=== PATIENT | female | born 1980 | race Hispanic/Latino ===

== ENCOUNTER → 2022-08-28 | Outpatient (CLI) | payer MEDICAID | END | disposition home or self-care (01) | LOC: RAH 07:53 | PROVIDERS: ATTEND Obstetrics & Gynecology | DX: Z12.31 Encounter for screening mammogram for malignant neoplasm of breast (principal) | CPT/HCPCS: 77067 ==

== ENCOUNTER 2023-10-25 20:49 | Inpatient (IN) | payer MEDICAID, OTHER ==
[~2023-10-25] VITALS: Ht 160 cm; Wt 81.7 kg
[2023-10-25] MEDS: ONDANSETRON ODT 4MG TAB SL ONE (21:00)
[2023-10-25 21:13] LABS: BASOPHILS # (AUTO) 0.06 K/uL (0.00-0.20); BASOPHILS % (AUTO) 0.5 % (0.0-5.0); EOSINOPHILS # (AUTO) 0.02 K/uL (0.00-0.70); EOSINOPHILS % (AUTO) 0.2 % (0.0-8.0); HEMATOCRIT 44.1 % (36-48); IMMATURE GRANULOCYTE ABSOLUTE 0.04 K/uL (0-1); LYMPHOCYTES # (AUTO) 2.6 K/uL (1.0-4.8); LYMPHOCYTES % (AUTO) 20.3 % (21.0-51.0); MEAN CORPUSCULAR HEMOGLOBIN 24.6 pg (27.0-33.0); MEAN CORPUSCULAR HGB CONC 31.1 g/dL (32.0-36.0); MEAN CORPUSCULAR VOLUME 79.3 fL (79-99); MONOCYTES # (AUTO) 0.8 K/uL (0.1-1.0); MONOCYTES % (AUTO) 5.8 % (3.0-13.0); NEUTROPHILS # (AUTO) 9.5 K/uL (1.8-7.7); NEUTROPHILS % (AUTO) 72.9 % (40.0-77.0); PLATELET COUNT (AUTO) 385 K/uL (130-400); RED BLOOD CELL COUNT(AUTO) 5.56 MIL/uL (4.00-5.50); RED CELL DISTRIBUTION WIDTH 15.7 % (11.0-15.5)
[2023-10-25 21:26] LABS: SARS-CoV-2, RNA, NAAT NEGATIVE SARS CoV-2 (NEGATIVE)
[2023-10-25 21:32] LABS: INFLUENZA TYPE A Negative For Type A (NEGATIVE); INFLUENZA TYPE B Negative For Type B (NEGATIVE)
[2023-10-25 21:33] LABS: CREATININE 0.9 mg/dL (0.5-1.0); POTASSIUM 3.3 mmol/L (3.5-5.1)
[2023-10-25] MEDS: 0.9%NACL 1000ML 1,000 ML IV ONE (23:14)
[2023-10-25 23:17] LABS: ADD UA MICROSCOPIC YES; APPEARANCE,URINE CLOUDY (CLEAR); BILIRUBIN,URINE NEGATIVE (NEGATIVE); COLOR,URINE YELLOW (YELLOW); GLUCOSE, URINE (UA) >=1000 mg/dL (NEGATIVE); KETONES,URINE 150 mg/dL (NEGATIVE); LEUKOCYTE ESTERASE ,URINE 500 Leu/uL (NEGATIVE); NITRATE,URINE NEGATIVE (NEGATIVE); OCCULT BLOOD,URINE SMALL (NEGATIVE); PROTEIN,URINE 200 mg/dL (NEGATIVE)
[2023-10-25 23:18] LABS: BACTERIA,URINE MOD /HPF (None Seen); MUCUS,URINE FEW LPF (None Seen); SQUAMOUS EPITHELIAL CELL,UR MANY /HPF (0-2); WBC,URINE TNTC /HPF (0-1)
[2023-10-25 23:46] LABS: BILIRUBIN,DIRECT 0.2 mg/dL (0.0-0.3); BILIRUBIN,TOTAL 0.9 mg/dL (0.2-1.0); TOTAL PROTEIN, SERUM 9.4 g/dL (6.0-8.3)
[2023-10-26] MEDS: cefTRIAXone 1G VIAL IVPB ONE (00:25)
[2023-10-26] MEDS: metoCLOPRAmide 10 MG/2 ML VIAL IVP ONE (00:43)
[2023-10-26] MEDS ORDERED: GLUCAGON 1MG KIT 1 MG ML IM PRN (04:30)
[2023-10-26] MEDS ORDERED: DEXTROSE 50%-WATER 50 ML DISP.SYRIN IV PRN (04:30)
[2023-10-26] MEDS: 0.9%NACL 1000ML 1,000 ML IV SCH (04:58)
[2023-10-26] MEDS: INSULIN humuLIN R 100 UNIT/ML 3ML SQ SCH (07:30)
[2023-10-26 08:02] LABS: BASOPHILS # (AUTO) 0.06 K/uL (0.00-0.20); BASOPHILS % (AUTO) 0.6 % (0.0-5.0); EOSINOPHILS # (AUTO) 0.04 K/uL (0.00-0.70); EOSINOPHILS % (AUTO) 0.4 % (0.0-8.0); HEMATOCRIT 42.4 % (36-48); IMMATURE GRANULOCYTE ABSOLUTE 0.04 K/uL (0-1); LYMPHOCYTES # (AUTO) 2.1 K/uL (1.0-4.8); LYMPHOCYTES % (AUTO) 19.7 % (21.0-51.0); MEAN CORPUSCULAR HEMOGLOBIN 25.5 pg (27.0-33.0); MEAN CORPUSCULAR HGB CONC 31.4 g/dL (32.0-36.0); MEAN CORPUSCULAR VOLUME 81.2 fL (79-99); MONOCYTES # (AUTO) 0.7 K/uL (0.1-1.0); MONOCYTES % (AUTO) 6.8 % (3.0-13.0); NEUTROPHILS # (AUTO) 7.8 K/uL (1.8-7.7); NEUTROPHILS % (AUTO) 72.1 % (40.0-77.0); PLATELET COUNT (AUTO) 322 K/uL (130-400); RED BLOOD CELL COUNT(AUTO) 5.22 MIL/uL (4.00-5.50); RED CELL DISTRIBUTION WIDTH 15.6 % (11.0-15.5); WHITE BLOOD COUNT (AUTO) 10.8 K/uL (4.8-10.8)
[2023-10-26] MEDS: cefTRIAXone 1G VIAL IVPB SCH (08:50)
[2023-10-26] MEDS: FAMOTIDINE 20MG VIAL IV SCH (08:50)
[2023-10-26] MEDS: POTASSIUM CHLORIDE 20MEQ/100ML 100 ML IV PRN (08:50)
[2023-10-26] MEDS: ONDANSETRON 4MG INJ IV PRN (08:50)
[2023-10-26] MEDS ORDERED: cefTRIAXone 1G VIAL 1 GM in 0.9%NACL 50ML 50 ML IV SCH (09:00)
[2023-10-26 09:02] LABS: ALBUMIN 3.4 g/dL (3.5-5.0); BILIRUBIN,TOTAL 0.7 mg/dL (0.2-1.0); CREATININE 0.8 mg/dL (0.5-1.0); MAGNESIUM 1.9 mg/dL (1.80-2.40); POTASSIUM 3.3 mmol/L (3.5-5.1); THYROID STIMULATING HORMONE 1.07 uIU/mL (0.36-3.74); TOTAL PROTEIN, SERUM 8.3 g/dL (6.0-8.3)
[2023-10-26 12:06] VITALS: BP 116/81; PULSE 67; RESP 18; TEMP 97.8
[2023-10-26] MEDS ORDERED: LISI2.5T13 PO (12:27)
[2023-10-26] MEDS ORDERED: ATOR40TA69 PO (12:33)
[2023-10-26] MEDS ORDERED: EMPA10TA PO (12:33)
[2023-10-26] MEDS ORDERED: SEMA2PEN SQ (12:33)
[2023-10-26] MEDS ORDERED: TRAZ-185 PO (12:33)
[2023-10-26 14:21] LABS: AMPHET/METH SCREEN,URINE POSITIVE (NEGATIVE); BARBITURATE SCREEN, URINE NEGATIVE (NEGATIVE); BENZODIAZEPINES SCREEN,URINE NEGATIVE (NEGATIVE); CANNABINOID SCREEN,URINE POSITIVE (NEGATIVE); COCAINE SCREEN,URINE NEGATIVE (NEGATIVE); OPIATE SCREEN,URINE NEGATIVE (NEGATIVE); PHENCYCLIDINE SCREEN,URINE NEGATIVE (NEGATIVE)
[2023-10-26] MEDS ORDERED: POTASSIUM CHLORIDE 20MEQ/100ML 100 ML IV PRN (15:30)
[2023-10-26] MEDS ORDERED: POTASSIUM CHLORIDE 10% ELIXIR 20 MEQ/15 ML UDCUP PO PRN (15:30)
[2023-10-26 15:38] VITALS: BP 113/73; PULSE 65; RESP 18; TEMP 98.1
[2023-10-26] MEDS: MAGNESIUM 2GM PREMIX 50ML 50 ML IV PRN (17:43)
[2023-10-26 19:00] VITALS: BP 96/62; PULSE 64; RESP 14; TEMP 97.8
[2023-10-26 20:14] VITALS: O2SAT 97
[2023-10-26] MEDS: atorVAStatin 40 MG TABLET PO SCH (20:14)
[2023-10-26] MEDS: KCL 20 MEQ ERTAB PO PRN (20:29)
[2023-10-26] MEDS: ketOROlac 15MG/ML VIAL (15MG/ML) IM PRN (20:29)
[2023-10-26 23:00] VITALS: BP 105/63; PULSE 81; RESP 16; TEMP 98.6
[2023-10-27 03:00] VITALS: BP 114/70; PULSE 66; RESP 16; TEMP 98.5
[2023-10-27 05:22] LABS: BASOPHILS # (AUTO) 0.04 K/uL (0.00-0.20); BASOPHILS % (AUTO) 0.5 % (0.0-5.0); EOSINOPHILS # (AUTO) 0.13 K/uL (0.00-0.70); EOSINOPHILS % (AUTO) 1.7 % (0.0-8.0); HEMATOCRIT 37.3 % (36-48); IMMATURE GRANULOCYTE ABSOLUTE 0.02 K/uL (0-1); LYMPHOCYTES # (AUTO) 2.8 K/uL (1.0-4.8); LYMPHOCYTES % (AUTO) 36.6 % (21.0-51.0); MEAN CORPUSCULAR HEMOGLOBIN 24.9 pg (27.0-33.0); MEAN CORPUSCULAR HGB CONC 30.3 g/dL (32.0-36.0); MEAN CORPUSCULAR VOLUME 82.2 fL (79-99); MONOCYTES # (AUTO) 0.6 K/uL (0.1-1.0); MONOCYTES % (AUTO) 8.2 % (3.0-13.0); NEUTROPHILS # (AUTO) 4.1 K/uL (1.8-7.7); NEUTROPHILS % (AUTO) 52.7 % (40.0-77.0); PLATELET COUNT (AUTO) 278 K/uL (130-400); RED BLOOD CELL COUNT(AUTO) 4.54 MIL/uL (4.00-5.50); RED CELL DISTRIBUTION WIDTH 15.6 % (11.0-15.5); WHITE BLOOD COUNT (AUTO) 7.8 K/uL (4.8-10.8)
[2023-10-27 05:55] LABS: ALBUMIN 2.7 g/dL (3.5-5.0); BILIRUBIN,TOTAL 0.4 mg/dL (0.2-1.0); CREATININE 0.8 mg/dL (0.5-1.0); POTASSIUM 3.8 mmol/L (3.5-5.1); TOTAL PROTEIN, SERUM 6.9 g/dL (6.0-8.3)
[2023-10-27 08:00] VITALS: BP 103/72; PULSE 73; RESP 16; TEMP 98.1; O2SAT 97
[2023-10-27] MEDS: LISINOPRIL 2.5 MG TABLET PO SCH (08:54)
[2023-10-27 12:00] VITALS: BP 104/71; PULSE 77; RESP 16; TEMP 98.5
[2023-10-27 16:00] VITALS: BP 99/71; PULSE 63; RESP 16; TEMP 98.7
== END 2023-10-27 19:20 | disposition left against medical advice (07) | DRG 463 ==
LOC: EDH 20:49 → OBSVTOIN 20:50 → INTOOBSV 20:50 → EDHIP 20:50 → 3CH 10-26 10:46
PROVIDERS: ADMIT Hospitalist; ATTEND Hospitalist
DX: N39.0 Urinary tract infection, site not specified (principal); E11.9 Type 2 diabetes mellitus without complications; E78.5 Hyperlipidemia, unspecified; I10 Essential (primary) hypertension; E83.52 Hypercalcemia; E86.0 Dehydration; N28.1 Cyst of kidney, acquired; Z90.710 Acquired absence of both cervix and uterus; Z90.49 Acquired absence of other specified parts of digestive tract; Z79.899 Other long term (current) drug therapy
CPT/HCPCS: 36415; 74176; 80048; 80053; 80076; 80305; 81001; 82330; 82948; 83690; 83735; 83970; 84443; 84484; 85025; 87086; 87186; 87635; 87804; 93005; 96365; 96375; G0378; J0696; J1885; J2405; J2765; J3475; J3480; J3490; J7030

== ENCOUNTER 2024-01-05 17:12 | Emergency (ER) | payer MEDICAID ==
[~2024-01-05] VITALS: Ht 160 cm; Wt 81.6 kg
[~2024-01-05 17:12] MED LIST: ATOR40TA69 PO; EMPA10TA PO; LISI2.5T13 PO; SEMA2PEN SQ; TRAZ-185 PO
--- NOTE | 2024-01-05 17:18 | NUR ---
PT JUST NOW BEING PLACED IN MY ED BED 20
--- NOTE | 2024-01-05 17:25 | ERN ---
ED Note History of Present Illness Stated Complaint: NECK PAIN Chief Complaint: Neck Injury Time Seen by MD: 17:15 Dictation: PATIENT IS A 43-YEAR-OLD FEMALE COMING IN TODAY WITH COMPLAINTS OF LEFT POSTEROLATERAL NECK PAIN THAT RADIATES DOWN TO THE SHOULDER WITHOUT MIDLINE SPINE PAIN ONSET WAS YESTERDAY. SHE STATES SHE HAD GONE TO BED THE NIGHT BEFORE WITHOUT ANY PAIN, WOKE UP WITH PAIN TO THE LEFT POSTERIOR LATERAL NECK. NO HISTORY OF NECK SURGERIES OTHER THAN A LYMPHADENOPATHY BIOPSY 20 YEARS AGO. NO FEVER NO CHILLS Allergies: Coded Allergies: No Known Allergies (Unverified Allergy, Unknown, 10/25/23) Home Meds Active Scripts Ibuprofen (Ibuprofen 800 mg Tab) 800 Mg Tab, 800 MG PO Q8H PRN for fever or pain, #30 TAB 0 Refills Prov:RACHELL HE NP 01/05/24 Cyclobenzaprine HCl (Cyclobenzaprine HCl) 10 Mg Tablet, 1 TAB PO TID for muscle spasms for 10 Days, #30 TAB 0 Refills Prov:RACHELL HE NP 01/05/24 Reported Medications Trazodone HCl (Trazodone HCl) 50 Mg Tablet, 50 MG PO HS PRN for INSOMNIA/SLEEP, TAB 10/26/23 Semaglutide (Ozempic) 2 Mg/0.75 Ml (8 Mg/3 Ml) Pen.injctr, 2 MG SQ QWEEK 10/26/23 Atorvastatin Calcium (LIPITOR) 40 Mg Tablet, 40 MG PO HS, TAB 10/26/23 Empagliflozin (Jardiance) 10 Mg Tablet, 10 MG PO AM, TAB 10/26/23 Lisinopril (Lisinopril) 2.5 Mg Tablet, 2.5 MG PO AM, TAB 10/26/23 Past Medical History Past Medical History: Diabetes-Type II Surgical History: Hysterectomy, Cholecystectomy PSYCH History: no pertinent psych hx History: Not Applicable RN Note Reviewed/Agreed w/PFSH: Yes Review of System Dictation CONSTITUTIONAL: NEGATIVE EXCEPT FOR HPI HEAD/FACE: NEGATIVE EXCEPT FOR HPI EENT: NEGATIVE EXCEPT FOR HPI RESPIRATORY: NEGATIVE EXCEPT FOR HPI GASTROINTESTINAL/ABDOMINAL: NEGATIVE EXCEPT FOR HPI GENITOURINARY: NEGATIVE EXCEPT FOR HPI MUSCULOSKELETAL: NEGATIVE EXCEPT FOR HPI LEFT LATERAL POSTERIOR NECK PAIN INTEGUMENTARY: NEGATIVE EXCEPT FOR HPI NEUROLOGICAL/PSYCH: NEGATIVE EXCEPT FOR HPI HEMATOLOGIC/LYMPHATIC: NEGATIVE EXCEPT FOR HPI ALL SYSTEMS NEGATIVE, EXCEPT NOTED ABOVE. 13 POINT REVIEW OF SYSTEMS ASSESSED AND ALL NEGATIVE EXCEPT FOR ABOVE. Initial Vital Sign VS Vital Signs Date Time Temp Pulse Resp B/P (MAP) Pulse Ox O2 Delivery O2 Flow Rate FiO2 01/05/24 17:14 98.6 74 18 139/93 98 01/05/24 18:50 Room Air* 0 21 Physical Exam Dictation VITAL SIGNS REVIEWED GENERAL APPEARANCE: ALERT, ORIENTED X 3, MODERATE ACUTE DISTRESS, WELL DEVELOPED, NOURISHED. HEAD AND FACE: NON-TRAUMATIC. EYES: PERRL, PINK CONJUNCTIVAS, EYELID NO TRAUMA, ANTERIOR CHAMBER WITH ARCUS SENILIS. EARS: PINNAS INTACT AND NO SIGNS OF TRAUMA OR ERYTHEMA EAR CANALS CLEAR AND NO DISCHARGE TM NO ERYTHEMA NOSE: NO DISCHARGE, NO BLEEDING. OROPHARYNX: MOUTH NORMAL, TONGUE PINK, PHARYNX CLEAR,NO ERYTHEMA, TONSILS NO EXUDATES, NO ABSCESSES NOTED, MUCOUS MEMBRANE MOIST NECK: POSITIVE LEFT POSTERIOR LATERAL PARASPINOUS SPASM, NO THYROMEGALY, NO MASSES, NO JVD, NO BRUITS NO MIDLINE SPINE PAIN BREAST:DEFERRED CHEST:NO TENDERNESS, NO CREPITUS, NO PARADOXICAL MOVEMENT, NO RETRACTIONS LUNGS:CLEAR, WELL-VENTILATED, SYMMETRIC, NO RALES, NO WHEEZING, NO RHONCHI, NO STRIDOR, GOOD BREATH SOUNDS BILATERALLY HEART: REGULAR RATE, REGULAR RHYTHM, NO MURMUR, NO GALLOPS VASCULAR: NO PERIPHERAL EDEMA, ABDOMEN: SOFT, POSITIVE BOWEL SOUNDS, NONDISTENDED, NO GUARDING, NONTENDER, NO REBOUND, NO MASSES NO HEPATOMEGALY, NO SPLENOMEGALY, NO MESA'S SIGN, NO HERNIAS. RECTAL: DEFERRED GENITAL: DEFERRED NEUROLOGICAL: NORMAL SPEECH, MOTOR FUNCTION INTACT, SENSORY FUNCTION INTACT MUSCULOSKELETAL: NECK NONTENDER, FULL RANGE OF MOTION, BACK NONTENDER, FULL RANGE OF MOTION, EXTREMITIES: NONTENDER, FULL RANGE OF MOTION SKIN: COLOR PINK, DRY, NO TURGOR, NO RASH, NO LACERATIONS, NO ABRASIONS, NO CONTUSIONS. LYMPHATIC: DEFERRED Results (Laboratory/Radiology) Laboratory/Radiology CERV SPINE 2-3VWS: 01/05/2024 5:22 PM CHAIN BUILDER CLINICAL HISTORY: NON TRAUMA LEFT POSTERIOR NECK PAIN LATERAL, NO MIDLINE SPINE COMPARISON: None TECHNIQUE: images of the cervical spine were obtained. FINDINGS: The lung apices are clear. There is no fracture or destructive lesion. The vertebral bodies and posterior elements are unremarkable. The alignment, discs, and discovertebral relationships are normal. There is no evidence of instability on these views. IMPRESSION: Normal cervical spine. Labs Reviewed?: Yes ED Course ED Course Orders Procedure Category Date Status Time Cerv Spine 2-3vws RAD 01/05/24 Resulted 17:22 Ketorolac 60mg/2ml PHA 01/05/24 Complete (Toradol 60mg/2ml) 17:30 Hydrocodone/Apap PHA 01/05/24 Complete 5/325 (Gallant 5/325mg) 17:30 Diazepam 5mg Tab PHA 01/05/24 Complete (Valium 5 Mg Tab) 17:30 Cyclobenzaprine Hcl PHA 01/05/24 In Process (Cyclobenzaprine Hcl 19:00 Current Medications Medications (Trade) Dose Ordered Sig/Katherine Route PRN Reason Start Time Stop Time Status Last Admin Dose Admin Acetaminophen/ Hydrocodone Bitart (NORco 5/325MG) 1 tab ONCE ONCE PO 01/05/24 17:30 01/05/24 17:31 DC 01/05/24 17:51 Cyclobenzaprine HCl (Cyclobenzaprine HCl) 10 mg ONCE ONCE PO 01/05/24 19:00 01/05/24 19:01 01/05/24 18:51 Diazepam (VALium 5 mg TAB) 5 mg ONCE ONCE PO 01/05/24 17:30 01/05/24 17:31 DC 01/05/24 17:50 Ketorolac Tromethamine (toRADol 60MG/ 2ML) 60 mg ONCE ONCE IM 01/05/24 17:30 01/05/24 17:31 DC 01/05/24 17:50 Vital Signs Date Time Temp Pulse Resp B/P (MAP) Pulse Ox O2 Delivery O2 Flow Rate FiO2 01/05/24 18:50 98.2 76 20 117/80 100 Room Air* 0 21 01/05/24 17:14 98.6 74 18 139/93 98 1825, PAIN IS MARKEDLY REDUCED AFTER TREATMENT. DISCHARGED HOME WITH DIAGNOSIS OF TORTICOLLIS WITH IBUPROFEN AND FLEXERIL. TOLD TO SEE HER PRIMARY CARE DOCTOR ON SATURDAY OR SATURDAY WITHOUT FAIL Medical Decision Making MDM MEDICAL DISCHARGE MAKING BASED ON X-RAY OF NECK FOR NON TRAUMA PAIN AND PAIN MANAGEMENT. CERVICAL SPINE FILM NEGATIVE PAIN IS REDUCED AFTER TREATMENT NEUROLOGICALLY INTACT TO ALL EXTREMITIES DISCHARGED HOME WITH TORTICOLLIS DX & DISP Disposition: Discharge Departure Impression: Primary Impression: Torticollis, acute Condition: Stable Scripts Ibuprofen (Ibuprofen 800 mg Tab) 800 Mg Tab 800 MG PO Q8H PRN for fever or pain, #30 TAB 0 Refills Prov: RACHELL HE NP 01/05/24 Cyclobenzaprine HCl (Cyclobenzaprine HCl) 10 Mg Tablet 1 TAB PO TID for muscle spasms for 10 Days, #30 TAB 0 Refills Prov: RACHELL HE NP 01/05/24 Additional Instructions: FOLLOW-UP WITH PRIMARY CARE PROVIDER IN 1 TO 2 DAYS. TAKE MEDICATIONS DIRECTED HERE IN THE EMERGENCY ROOM. OKAY TO CONTINUE HOME MEDICATIONS UNLESS OTHERWISE DISCUSSED DURING YOUR VISIT IN THE EMERGENCY ROOM TODAY. RETURN TO YOUR NEAREST EMERGENCY ROOM IF SYMPTOMS WORSEN OR IF THERE IS NO IMPROVEMENT. CALL 911 IF YOU NEED IMMEDIATE ASSISTANCE. TAKE TYLENOL OR MOTRIN [id number] NEEDED AND IF NO CONTRAINDICATIONS ARE PRESENT. INCREASE ORAL HYDRATION. A WOUND CULTURE OR URINE CULTURE WAS ORDERED HERE IN THE EMERGENCY ROOM DEPARTMENT PLEASE FOLLOW-UP WITH PRIMARY CARE PROVIDER AND ADVISE THEM TO GET REPEAT PORTS FROM OUR FACILITY. IF YOU HAD ANY HUMBERTO WRAP/SPLINTS THAT WERE APPLIED HERE, PLEASE DO NOT REMOVE THEM UNTIL YOU SEE YOUR PRIMARY CARE OR SPECIALTY. TAKE IBUPROFEN AND FLEXERIL EVERY8 HOURS WITH FOOD FOR THE NEXT TWO DAYS. WARM COMPRESSES TO NECK THREE TO 4 TIMES A DAY. SEE YOUR PRIMARY CARE DOCTOR IN 1-2 DAYS WITHOUT FAIL FOR MANAGEMENT. Referrals: FARAZ BOLIVAR (PCP) Time of Disposition: 18:25 I have reviewed the case, and I agree with, Diagnosis and Plan ATTESTATION BY PHYSICIAN I PERFORMED THE SUBSTANTIVE PORTION OF THE VISIT. I HAVE REVIEWED AND PERSONALLY MADE AND APPROVED THE MANAGEMENT PLAN THAT IS DOCUMENTED IN THE NOTE BY MYSELF FOR THE A PP. I ACKNOWLEDGED FOR RESPONSIBILITY FOR THE PATIENT'S MANAGEMENT PLAN. RACHELL HE NP Jan 05, 2024 17:25 MAX CEVALLOS MD Jan 05, 2024 18:52
--- NOTE | 2024-01-05 17:35 | NUR ---
PT TO RADIOLOGY VIA W/C W/C VIA CHEMICAL DEPENDENCY ATTENDANT
[2024-01-05] MEDS: ketOROlac 60 MG VIAL (30MG/ML) IM ONE (17:50)
[2024-01-05] MEDS: diazePAM 5 MG TAB PO ONE (17:50)
[2024-01-05] MEDS: HYDROcodone/APAP 5/325 1 TAB TABLET PO ONE (17:51)
--- NOTE | 2024-01-05 18:00 | HMCIMG ---
CERV SPINE 2-3VWS: 01/05/2024 5:22 PM SMOKE JUMPER CLINICAL HISTORY: NON TRAUMA LEFT POSTERIOR NECK PAIN LATERAL, NO MIDLINE SPINE COMPARISON: None TECHNIQUE: images of the cervical spine were obtained. FINDINGS: The lung apices are clear. There is no fracture or destructive lesion. The vertebral bodies and posterior elements are unremarkable. The alignment, discs, and discovertebral relationships are normal. There is no evidence of instability on these views. IMPRESSION: Normal cervical spine.
[2024-01-05] MEDS ORDERED: IBUP-2077 PO (18:26)
[2024-01-05] MEDS ORDERED: CYCL-309 PO (18:26)
[2024-01-05 18:50] VITALS: BP 117/80; PULSE 76; RESP 20; TEMP 98.2; O2SAT 100
[2024-01-05] MEDS: CYCLOBENZAPRINE HCL 10 MG TABLET PO ONE (18:51)
--- NOTE | 2024-01-05 18:58 | NUR ---
DELAY IN D/C TO HOME D/T ONE LAST ADDED MED AND PT ASKING NOW FOR PRINTED SCRIPT AND NOW JUST PENDING IT TO BE PRINTED.
== END 2024-01-05 19:05 | disposition home or self-care (01) ==
LOC: EDH 17:12
DX: M43.6 Torticollis (principal); E11.9 Type 2 diabetes mellitus without complications; Z79.85 Long-term (current) use of injectable non-insulin antidiabetic drugs; Z79.899 Other long term (current) drug therapy; Z90.49 Acquired absence of other specified parts of digestive tract; Z90.710 Acquired absence of both cervix and uterus
CPT/HCPCS: 99284; 72040; 96372; J1885